=== PATIENT | female | born 1990 | race African-American/Black ===

== ENCOUNTER 2024-05-16 07:57 | Emergency (ER) | payer OTHER ==
[~2024-05-16] VITALS: Ht 165.1 cm; Wt 135.2 kg
[2024-05-16 08:10] VITALS: PULSE 73; RESP 18; TEMP 98.2; O2SAT 99
== END 2024-05-16 09:55 | disposition home or self-care (01) ==
LOC: FSED 08:05
DX: S40.021A Contusion of right upper arm, initial encounter (principal); S50.11XA Contusion of right forearm, initial encounter; R21 Rash and other nonspecific skin eruption; T80.89XA Other complications following infusion, transfusion and therapeutic injection, initial encounter
CPT/HCPCS: 93971; 99283